=== PATIENT | male | born 1990 | race Caucasian/White ===

== ENCOUNTER 2021-06-27 01:33 | Emergency (ER) | payer SELFPAY ==
[~2021-06-27] VITALS: Ht 190.5 cm; Wt 157.0 kg
[2021-06-27] MEDS ORDERED: ONDANSETRON HCL 4MG/2ML INJ IV STA (01:55)
[2021-06-27] MEDS ORDERED: MORPHINE SULFATE 4 MG/ML CPJ (NOT FOR IM USE) IV STA (01:55)
[2021-06-27] MEDS ORDERED: FAMOTIDINE 20MG/2ML VIAL IV STA (01:55)
[2021-06-27] MEDS ORDERED: SODIUM CHLORIDE 0.9% 1,000 ML IV ONE (02:00)
[2021-06-27 02:26] LABS: CLARITY URINE CLEAR (CLEAR); COLOR URINE YELLOW (YELLOW); KETONES URINE NEGATIVE (NEGATIVE); LEUKOCYTE ESTERASE URINE NEGATIVE (NEGATIVE); NITRITE URINE NEGATIVE (NEGATIVE); OCCULT BLOOD URINE 1+ (NEGATIVE); PROTEIN URINE 3+ (NEGATIVE); SPECIFIC GRAVITY URINE 1.019 (1.005-1.030); UROBILINOGEN URINE 0.2 E.U./dL (0.2-1.0)
[2021-06-27 02:27] LABS: BASOPHILS % 0.9 % (0.0-2.0); EOSINOPHILS % 1.5 % (0.0-5.0); HEMATOCRIT. 46.8 % (42.0-52.0); HEMOGLOBIN. 15.9 g/dL (14.0-18.0); MEAN CORPUSCULAR VOLUME 88.5 fL (80.0-94.0); MEAN PLATELET VOLUME 8.8 fl (7.4-10.4); NEUTROPHILS % 62.6 % (40.0-76.0); PLATELET 354 x1000/uL (130-400); RED BLOOD CELL COUNT 5.29 mill/uL (4.7-6.1); RED CELL DISTRIBUTION WIDTH 14.2 % (11.6-14.6)
[2021-06-27 02:36] LABS: CHLORIDE 104 mEq/L (98-107)
[2021-06-27 02:43] LABS: PROTHROMBIN TIME 11.1 sec (9.6-11.0)
[2021-06-27] MEDS ORDERED: MORPHINE SULFATE 2 MG/ML CPJ (NOT FOR IM USE) IV NR (03:00)
[2021-06-27] MEDS ORDERED: FAMO40TA70 MT (03:02)
[2021-06-27] MEDS ORDERED: IBUP-2028 MT (03:02)
[2021-06-27] MEDS ORDERED: TRAM50TA3 MT (03:02)
[2021-06-27 03:42] VITALS: BP 154/94
== END 2021-06-27 03:50 | disposition home or self-care (01) ==
LOC: ER 01:33
DX: K29.00 Acute gastritis without bleeding (principal); E86.0 Dehydration; R03.0 Elevated blood-pressure reading, without diagnosis of hypertension; K76.0 Fatty (change of) liver, not elsewhere classified
CPT/HCPCS: 36415; 76705; 80053; 81003; 83690; 85025; 85610; 93005; 96361; 96374; 96375; 99285; J2405; J3490; J7030

== ENCOUNTER 2022-02-13 02:19 | Emergency (ER) | payer SELFPAY ==
[~2022-02-13] VITALS: Ht 190.5 cm; Wt 171.5 kg
[~2022-02-13 02:19] MED LIST: FAMO40TA70 MT; IBUP-2028 MT; TRAM50TA3 MT
[2022-02-13] MEDS ORDERED: ONDANSETRON HCL 4MG/2ML INJ IV STA (03:12)
[2022-02-13] MEDS ORDERED: MORPHINE SULFATE 4 MG/ML CPJ (NOT FOR IM USE) IV STA (03:12)
[2022-02-13] MEDS ORDERED: SODIUM CHLORIDE 0.9% 1,000 ML IV ONE (03:15)
[2022-02-13 03:36] LABS: BASOPHILS % 0.4 % (0.0-2.0); EOSINOPHILS % 0.2 % (0.0-5.0); HEMATOCRIT. 43.7 % (42.0-52.0); HEMOGLOBIN. 14.8 g/dL (14.0-18.0); LYMPHOCYTES % 12.7 % (20.0-50.0); MEAN CORPUSCULAR HEMOGLOBIN 29.5 pg (28.0-32.0); MEAN CORPUSCULAR VOLUME 87.5 fL (80.0-94.0); MEAN PLATELET VOLUME 8.2 fl (7.4-10.4); MONOCYTES % 3.8 % (2.0-8.0); NEUTROPHILS % 82.9 % (40.0-76.0); PLATELET 343 x1000/uL (130-400); RED CELL DISTRIBUTION WIDTH 14.6 % (11.6-14.6)
[2022-02-13 03:43] LABS: CHLORIDE 105 mEq/L (98-107)
[2022-02-13 05:00] VITALS: BP 199/115
[2022-02-13] MEDS ORDERED: TOPUD PO (06:26)
== END 2022-02-13 06:45 | disposition home or self-care (01) ==
LOC: ER 02:19
DX: R10.11 Right upper quadrant pain (principal); I10 Essential (primary) hypertension; K82.9 Disease of gallbladder, unspecified; K76.0 Fatty (change of) liver, not elsewhere classified; R16.0 Hepatomegaly, not elsewhere classified
CPT/HCPCS: 36415; 71045; 76705; 80053; 83605; 83690; 85025; 93005; 96361; 96374; 96375; 99285; J2270; J2405; J7030